=== PATIENT | male | born 1995 | race Caucasian/White ===

== ENCOUNTER 2017-04-01 15:40 | Emergency (ER) | payer OTHER ==
[2017-04-01 15:46] VITALS: BP 117/80; PULSE 85; TEMP 98.5; BMI 22.3
[2017-04-01] MEDS ORDERED: ACETAMINOPHEN 325 MG TABLET (FP) PO ONE (15:58)
--- NOTE | 2017-04-01 16:04 | PDOC ---
History of Present Illness - General History Source: Patient Exam Limitations: No Limitations - History of Present Illness Initial Comments: 04/01/17 16:04 The patient is a 21 year old male with no significant past medical history who presents to the emergency department with a left wrist pain for 1 hour. The patient states that he was playing basketball when he fell, extended his arm and injured his wrist secondary to the impact of his fall. The patient denies any previous left wrist injuries. The patient states that he took 2 advil 2.5 hours ago before playing basketball for nagging ankle pain. He denies any other complaints at this time. <Arthur Mays - Last Filed: 04/01/17 16:04> <Amy Mcbride - Last Filed: 04/01/17 17:20> - General Chief Complaint: Injury Stated Complaint: LEFT WRIST INJURY Time Seen by Provider: 04/01/17 15:55 Past History <Arthur Mays - Last Filed: 04/01/17 16:04> - Past Medical History Other medical history: DENIES - Immunization History Td Vaccination: Yes Immunization Up to Date: Yes - Suicide/Smoking/Psychosocial Hx Smoking Status: No Smoking History: Never smoked Have you smoked in the past 12 months: Yes Number of Cigarettes Smoked Daily: 1 Information on smoking cessation initiated: Yes Hx Alcohol Use: (social) <Amy Mcbride - Last Filed: 04/01/17 17:20> - Past Medical History Allergies/Adverse Reactions: Allergies Allergy/AdvReac Type Severity Reaction Status Date / Time No Known Allergies Allergy Verified 04/01/17 15:41 Home Medications: Ambulatory Orders Ibuprofen [Motrin -] 600 mg PO TID #90 tablet 04/01/17 Review of Systems - Review of Systems Able to Perform ROS?: Yes Comments:: 04/01/17 16:05 GENERAL/CONSTITUTIONAL: No fever or chills. No weakness. HEAD, EYES, EARS, NOSE AND THROAT: No change in vision. No ear pain or discharge. No sore throat. GASTROINTESTINAL: No nausea, vomiting, diarrhea or constipation. GENITOURINARY: No dysuria, frequency, or change in urination. CARDIOVASCULAR: No chest pain or shortness of breath. RESPIRATORY: No cough, wheezing, or hemoptysis. MUSCULOSKELETAL: (+) Left wrist pain. No neck or back pain. SKIN: No rash NEUROLOGIC: No headache, vertigo, loss of consciousness, or change in strength/ sensation. ENDOCRINE: No increased thirst. No abnormal weight change. HEMATOLOGIC/LYMPHATIC: No anemia, easy bleeding, or history of blood clots. ALLERGIC/IMMUNOLOGIC: No hives or skin allergy. <Arthur Mays - Last Filed: 04/01/17 16:04> *Physical Exam - Vital Signs Last Vital Signs Temp Pulse Resp BP Pulse Ox 98.5 F 85 18 117/80 99 04/01/17 15:40 04/01/17 15:40 04/01/17 15:40 04/01/17 15:40 04/01/17 15:40 - Physical Exam Comments: 04/01/17 16:05 GENERAL: Awake, alert, and fully oriented, in no acute distress HEAD: No signs of trauma EYES: PERRLA, EOMI, sclera anicteric, conjunctiva clear ENT: Auricles normal inspection, nares patent, Moist mucosa NECK: Normal ROM, supple, no lymphadenopathy, JVD, or masses LUNGS: Breath sounds equal, clear to auscultation bilaterally. No wheezes, and no crackles HEART: Regular rate and rhythm, normal S1 and S2, no murmurs, rubs or gallops ABDOMEN: Soft, nontender, normoactive bowel sounds. No guarding, no rebound. No masses EXTREMITIES: Normal range of motion, no edema. No clubbing or cyanosis. No cords, erythema, or tenderness NEUROLOGICAL: Normal speech SKIN: Warm, Dry, normal turgor, no rashes or lesions noted. <Arthur Mays - Last Filed: 04/01/17 16:04> - Vital Signs Last Vital Signs Temp Pulse Resp BP Pulse Ox 98.5 F 85 18 117/80 99 04/01/17 15:40 04/01/17 15:40 04/01/17 15:40 04/01/17 15:40 04/01/17 15:40 <Amy Mcbride - Last Filed: 04/01/17 17:20> Procedures - Splinting Splint Location: Left: Wrist Pre-Proc Neuro Vasc Exam: normal Hand-Made Type: orthoglass Splint Type: Yes: Volar Post-Proc Neuro Vasc Exam: normal Marc Bandage: yes Sling: Yes Complications: No Post splint xray: No <Amy Mcbride - Last Filed: 04/01/17 17:20> ED Treatment Course - Medications Given in the ED: ED Medications Discontinued Medications Generic Name Dose Route Start Last Admin Trade Name Freq PRN Reason Stop Dose Admin Acetaminophen 650 mg 04/01/17 15:58 04/01/17 16:00 Tylenol - PO 04/01/17 15:59 650 mg ONCE ONE Administration <Arthur Mays - Last Filed: 04/01/17 16:04> - RADIOLOGY Radiology Studies Ordered: Category Date Time Status WRIST W/HAND-LEFT* [RAD] Stat Radiology 04/01/17 15:57 Ordered - Medications Given in the ED: ED Medications Discontinued Medications Generic Name Dose Route Start Last Admin Trade Name Freq PRN Reason Stop Dose Admin Acetaminophen 650 mg 04/01/17 15:58 04/01/17 16:00 Tylenol - PO 04/01/17 15:59 650 mg ONCE ONE Administration <Amy Mcbride - Last Filed: 04/01/17 17:20> Medical Decision Making - Medical Decision Making 04/01/17 16:03 21 yo male s/p left wrist injury s/p FOOSH playing basketball/ co distal radial pain. no eccymosis or swelling. pain on palpation, and rotation. elbow and shoulder nt. distally n/v intact. plan : differential distal radial fx, sprain. plan pain meds, xry likley splint and dc 04/01/17 16:36 xray with distal radial fracture. splinted volar splint. will fu with dr. baylee valiente. this week. rx for motrin 600 mg <Amy Mcbride - Last Filed: 04/01/17 17:20> *DC/Admit/Observation/Transfer - Attestations Scribe Attestion: 04/01/17 16:05 Documentation prepared by Arthur Mays, acting as medical transcriptionist for Amy Mcbride MD. <Arthur Mays - Last Filed: 04/01/17 16:04> <Amy Mcbride - Last Filed: 04/01/17 17:20> Diagnosis at time of Disposition: Distal radial fracture - Discharge Dispostion Condition at time of disposition: Stable - Prescriptions Prescriptions: Ibuprofen [Motrin -] 600 mg PO TID #90 tablet - Referrals Referrals: Obi Carrillo [Primary Care Provider] - Guillermo Clinton MD [Staff Physician] - - Patient Instructions Printed Discharge Instructions: How to Use a Sling, Wrist Fracture Additional Instructions: wear splint and sling until follow up with orthopedist. you can take ibuprofen 600 mg every 8 hours as needed for pain. return for any numbness, swelling or any concerns. you will need to follow upwith orthopedist within one week. call to schedule with DR. Clinton on April 04. call monday to confirm time. or see referral information. keep elevated to reduce swelling and help with pain. keep splint dry from water.
== END 2017-04-01 17:25 | disposition home or self-care (01) ==
LOC: FER 15:40
PROC: 2W3CX1Z Immobilization of Right Lower Arm using Splint (ICD-10-PCS; principal; 2017-04-01)
DX: S52.502A Unspecified fracture of the lower end of left radius, initial encounter for closed fracture (principal); W26.1XXA Contact with sword or dagger, initial encounter; Y93.67 Activity, basketball; Y92.310 Basketball court as the place of occurrence of the external cause
CPT/HCPCS: 73110-TC-LT; 73130-TC-LT; 99284-25